=== PATIENT | female | born 1960 | race Caucasian/White ===

== ENCOUNTER 2017-07-05 12:53 | Inpatient (IN) | payer BC ==
[~2017-07-05] VITALS: Ht 162.6 cm; Wt 106.9 kg
[2017-07-05 12:57] VITALS: BP 246/114; PULSE 120; RESP 16; TEMP 98.1; O2SAT 98
[2017-07-05 14:39] LABS: AUTOMATED NEUTROPHIL # 4.4 TH/MM3 (1.8-7.7); BASOPHIL % 0.7 % (0.0-2.0); EOSINOPHIL # 0.1 TH/MM3 (0-0.4); EOSINOPHIL % 1.6 % (0.0-4.0); HEMATOCRIT 39.2 % (35.0-46.0); HEMOGLOBIN 13.1 GM/DL (11.6-15.3); LYMPH % 20.7 % (9.0-44.0); LYMPHOCYTE # 1.3 TH/MM3 (1.0-4.8); MEAN CELL VOLUME 80.6 FL (80.0-100.0); MEAN CORPUSCULAR HEMOGLOBIN 26.9 PG (27.0-34.0); MEAN CORPUSCULAR HGB CONC 33.4 % (32.0-36.0); MEAN PLATELET VOLUME 7.9 FL (7.0-11.0); MONO % 6.4 % (0.0-8.0); MONOCYTE # 0.4 TH/MM3 (0-0.9); NEUT % 70.6 % (16.0-70.0); PLATELET COUNT 277 TH/MM3 (150-450); RED BLOOD COUNT 4.87 MIL/MM3 (4.00-5.30); WHITE BLOOD COUNT 6.2 TH/MM3 (4.0-11.0)
[2017-07-05 15:08] LABS: BICARBONATE 27.3 MEQ/L (21.0-32.0); BLOOD UREA NITROGEN 13 MG/DL (7-18); CALCIUM 9.2 MG/DL (8.5-10.1); CHLORIDE 104 MEQ/L (98-107); CREATININE 0.72 MG/DL (0.50-1.00); GLOMERULAR FILTRATION RATE 83 ML/MIN (>89); GLUCOSE,RANDOM 102 MG/DL (74-106); MAGNESIUM 2.1 MG/DL (1.5-2.5); SODIUM (NA) 139 MEQ/L (136-145)
[2017-07-05 15:12] LABS: TROPONIN I LESS THAN 0.02 NG/ML (0.02-0.05)
[2017-07-05] MEDS ORDERED: PIPERACIL-TAZO 3.375 GM PREMIX 50 ML IV ONE (15:45)
[2017-07-05] MEDS ORDERED: FIBE625T10 PO (16:02)
[2017-07-05] MEDS ORDERED: MECL-62 PO (16:02)
[2017-07-05] MEDS ORDERED: LISI-515 PO (16:02)
--- NOTE | 2017-07-05 16:23 | PD ---
HPI Chief Complaint: Hypertension Time Seen by Provider: 15:18 Travel History International Travel<30 days: Yes Contact w/Intl Traveler<30days: Yes Name of Country Traveled to: [place] Traveled to known affect area: No History of Present Illness HPI 57-year-old female that presents to the ED for evaluation of hypertension and left breast mass. Per patient she's had a mass in her left breast for about 15 years and she's been monitored by a different doctor but apparently per patient her insurance was recently changed about 6 months ago and she has not been able to follow up with anybody since. Per patient she was having the mass and she was told that he probably was calcified mass but never did anything for it. Per patient he was okay for the most part except she had some pain that she took Tylenol for it with some relief. Per patient after her insurance changed she noted that the mass is started discharge coming from it. Per patient is more sore. She denies any family history of breast cancer but denies any testing done. Per patient she was sent to do some testing before her insurance was changed but apparently she had issues as the testing that they wanted to do was not the necessary one and they kept going in and out of trying to do the testing. She never actually got any testing done per patient. Per patient she comes here today because she is concerned about the mass and the blood pressure which she checked today was elevated. She states that she takes lisinopril. Currently she has no PCP. She has no allergies to medication. She stands and chills on occasion. She states that she feels swollen. Has no chest pain or shortness of breath other than pain to the left breast. PFSH Past Medical History Cardiovascular Problems: Yes (HTN) Diabetes: No Hypertension: Yes Medical other: Yes (VERTIGO) Tetanus Vaccination: > 5 Years Influenza Vaccination: No ?: Not Tubal Ligation: Yes Past Surgical History Hysterectomy: Yes Social History Alcohol Use: Yes (OOCAS) Tobacco Use: No Substance Use: No Allergies-Medications (Allergen,Severity, Reaction): Coded Allergies: No Known Allergies (Unverified , 07/05/17) Reported Meds & Prescriptions Reported Meds & Active Scripts Active Reported Fiber (Calcium Polycarbophil) 625 Mg Tab 625 Mg PO PRN Meclizine (Meclizine HCl) 25 Mg Tab 25 Mg PO DIRECTED PRN Lisinopril 20 Mg Tab 20 Mg PO DAILY Review of Systems Except as stated in HPI: all other systems reviewed are Neg Physical Exam Narrative GENERAL: SKIN: Warm and dry. Breast exam: The with female nurse present. Patient has a significant mass to the left breast on the superior aspect of it. Patient does have opening of the skin with foul-smelling discharge that is about 3-4 cm in diameter. Patient has erythema and warmness to touch in the area. Patient does have lymphadenopathy noted on the left side. The mass itself appears to be almost 10 cm in diameter. Patient does have changes to the skin with erythema. HEAD: Atraumatic. Normocephalic. EYES: Pupils equal and round. No scleral icterus. No injection or drainage. ENT: No nasal bleeding or discharge. Mucous membranes pink and moist. Tongue is midline. No uvula deviation. NECK: Trachea midline. No JVD. CARDIOVASCULAR: Regular rate and rhythm. No murmurs, S3, S4. RESPIRATORY: No accessory muscle use. Clear to auscultation. Breath sounds equal bilaterally. GASTROINTESTINAL: Abdomen soft, non-tender, nondistended. Hepatic and splenic margins not palpable. MUSCULOSKELETAL: Extremities without clubbing, cyanosis, or edema. No obvious deformities. Full range of motion of the upper and lower extremities bilaterally. 2+ pulses bilaterally. NEUROLOGICAL: Awake and alert. No obvious cranial nerve deficits. Motor grossly within normal limits. Five out of 5 muscle strength in the arms and legs. Normal speech. PSYCHIATRIC: Appropriate mood and affect; insight and judgment normal. Data Data Last Documented VS Vital Signs Date Time Temp Pulse Resp B/P (MAP) Pulse Ox O2 Delivery O2 Flow Rate FiO2 07/05/17 15:37 110 18 99 Room Air 07/05/17 12:57 98.1 246/114 (158) Orders Orders Electrocardiogram (07/05/17 13:31) Basic Metabolic Panel (Bmp) (07/05/17 13:31) Ckmb (Isoenzyme) Profile (07/05/17 13:31) Complete Blood Count With Diff (07/05/17 13:31) Magnesium (Mg) (07/05/17 13:31) Troponin I (07/05/17 13:31) Blood Culture (07/05/17 15:43) Wound Culture And Gram Stain (07/05/17 15:43) Iv Access Insert/Monitor (07/05/17 15:43) Ecg Monitoring (07/05/17 15:43) Oximetry (07/05/17 15:43) Us Breast Unilateral (07/05/17 ) Ct Thorax/ Chest W Iv Contrast (07/05/17 ) Piperacil-Tazo 3.375 Gm Premix (Zosyn 3. (07/05/17 15:45) C-Reactive Protein (Crp) (07/05/17 15:55) Lactic Acid Sepsis Protocol (07/05/17 15:56) Iohexol 350 Inj (Omnipaque 350 Inj) (07/05/17 16:45) Hydralazine Inj (Apresoline Inj) (07/05/17 17:15) Admit Order (Ed Use Only) (07/05/17 17:33) Labs Laboratory Tests Test 07/05/17 14:14 07/05/17 14:15 07/05/17 15:55 Blood Urea Nitrogen 13 MG/DL Creatinine 0.72 MG/DL Random Glucose 102 MG/DL Calcium Level 9.2 MG/DL Magnesium Level 2.1 MG/DL Sodium Level 139 MEQ/L Potassium Level 3.7 MEQ/L Chloride Level 104 MEQ/L Carbon Dioxide Level 27.3 MEQ/L Anion Gap 8 MEQ/L Estimat Glomerular Filtration Rate 83 ML/MIN Total Creatine Kinase 71 U/L Troponin I LESS THAN 0.02 NG/ML White Blood Count 6.2 TH/MM3 Red Blood Count 4.87 MIL/MM3 Hemoglobin 13.1 GM/DL Hematocrit 39.2 % Mean Corpuscular Volume 80.6 FL Mean Corpuscular Hemoglobin 26.9 PG Mean Corpuscular Hemoglobin Concent 33.4 % Red Cell Distribution Width 14.0 % Platelet Count 277 TH/MM3 Mean Platelet Volume 7.9 FL Neutrophils (%) (Auto) 70.6 % Lymphocytes (%) (Auto) 20.7 % Monocytes (%) (Auto) 6.4 % Eosinophils (%) (Auto) 1.6 % Basophils (%) (Auto) 0.7 % Neutrophils # (Auto) 4.4 TH/MM3 Lymphocytes # (Auto) 1.3 TH/MM3 Monocytes # (Auto) 0.4 TH/MM3 Eosinophils # (Auto) 0.1 TH/MM3 Basophils # (Auto) 0.0 TH/MM3 CBC Comment DIFF FINAL Differential Comment Lactic Acid Level 1.0 mmol/L C-Reactive Protein LESS THAN 0.29 MG/DL MDM Medical Decision Making Medical Screen Exam Complete: Yes Emergency Medical Condition: Yes Medical Record Reviewed: Yes Interpretation(s) Last Impressions Chest CT 07/05/17 0000 Signed Impressions: Service Date/Time: Wednesday, July 05, 2017 16:39 - CONCLUSION: 1. Very large left-sided breast mass with associated skin thickening and left axillary adenopathy. Patient has been previously evaluated for this mass, most recently in September of 2015, with ultrasound report of BI-RADS 5 and reported surgical consultation. 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 2. Focal hypodense region along the lateral posterior aspect of the mass measures 2.9 x 3.5 cm. This likely reflects tumoral necrosis. Small abscess cannot be excluded given history of purulent discharge from the region of the mass. 3. No evidence for additional foci of metastatic disease. 4. Hepatic steatosis. Ayan Abel MD Breast Ultrasound 07/05/17 0000 Signed Impressions: Service Date/Time: Wednesday, July 05, 2017 15:59 - CONCLUSION: 1. Enlarging very large hypoechoic irregular lobulated mass occupying nearly the entire lateral aspect of the left breast. This mass has reportedly been present for many years and has been previously worked up. BI-RADS category 5 based on prior ultrasound examination from [facility] dated 10/06/2015. Clinical correlation is recommended. 2. No sonographic evidence for focal drainable fluid collection within the mass. Ayan Abel MD CBC & BMP Diagram 07/05/17 14:14 Calcium Level 9.2, Magnesium Level 2.1 07/05/17 14:15 Differential Diagnosis Breasts infection versus breast abscess versus breast cancer versus cellulitis Narrative Course 57-year-old female that presents to the ED for evaluation of breast infection. Labs and imaging were ordered. Labs and imaging that shows significant mass to the left breast. Appears to be possibly metastatic. Possible abscesses noted. My attending was made aware of findings and agrees with need for admission. Patient agrees with plan. Patient was started on IV antibiotics. Case was discussed with Dr. Moura who agrees to admission. Diagnosis Primary Impression: Cellulitis of left breast Additional Impression: Breast mass, left Admitting Information Admitting Physician Requests: Freedom Davenport Jul 05, 2017 16:23
[2017-07-05] MEDS ORDERED: IOHEXOL 350 MG/ML 10 ML VIAL (for RAD DIAG) IVCONTRAST ONE (16:45)
--- NOTE | 2017-07-05 17:03 | RADRPT ---
EXAM DATE/TIME: 07/05/2017 15:59 [facility] COMPARISON: CT THORAX W CONTRAST, July 05, 2017, 16:39. INDICATIONS : Palpable mass. MEDICAL HISTORY : Hypertension. Vertigo. SURGICAL HISTORY : Tubal ligation. Hysterectomy. ENCOUNTER: Initial ACUITY: > 1 year PAIN SCORE: 6/10 LOCATION: Left breast. FINDINGS: There is a very large hypoechoic irregular mass with minimal vascularity involving nearly the entire lateral side of the left breast. This mass measures approximately 12.0 x 13.2 x 6.1 cm. This was prev iously reported to measure 9.1 x 3.6 x 7.2 cm. There are no focal drainable fluid collections in the visualized portions of the breast. CONCLUSION: 1. Enlarging very large hypoechoic irregular lobulated mass occupying nearly the entire lateral aspec t of the left breast. This mass has reportedly been present for many years and has been previously wo rked up. BI-RADS category 5 based on prior ultrasound examination from [facility] dated 2015. Clinical correlation is recommended. 2. No sonographic evidence for focal drainable fluid collection within the mass. Ayan Abel MD on July 05, 2017 at 16:54 Board Certified Radiologist. This report was verified electronically.
--- NOTE | 2017-07-05 17:12 | RADRPT ---
EXAM DATE/TIME: 07/05/2017 16:39 [facility] COMPARISON: No previous studies available for comparison. INDICATIONS : Patient with history of left breast mass. IV CONTRAST: 100 cc Omnipaque 350 (iohexol) IV RADIATION DOSE: 19.63 CTDIvol (mGy) MEDICAL HISTORY : Cardiovascular disease. Hypertension. breast mass SURGICAL HISTORY : None. ENCOUNTER: Initial ACUITY: >1 yr PAIN SCALE: 9/10 LOCATION: Left chest TECHNIQUE: Volumetric scanning of the chest was performed. Using automated exposure control and adjustment of t he mA and/or kV according to patient size, radiation dose was kept as low as reasonably achievable to obtain optimal diagnostic quality images. DICOM format image data is available electronically for review and comparison. Follow-up recommendations for detected pulmonary nodules are based at a minimum on nodule size and [facility] risk factors according to Fleischner Society Guidelines. FINDINGS: LUNGS: There is no consolidation or pneumothorax. No concerning pulmonary nodule is visualized. PLEURA: There is no pleural thickening or pleural effusion. MEDIASTINUM: The heart and great vessels demonstrate no acute abnormality. There is no mediastinal or hilar lymph adenopathy. AXILLAE: There is a very large left-sided breast mass occupying nearly the entire left breast measuring approx imately 9.7 x 6.6 cm. There is associated skin thickening. A focal 2.9 x 3.5 cm portion of this mass is more hypodense along the lateral posterior aspect. There are multiple enlarged left axillary nodes with the largest measuring 3.8 x 3.5 cm. There also multiple prominent vessels noted extending from the mass. SKELETAL: Within normal limits for patient age. MISCELLANEOUS: The visualized upper abdominal organs demonstrate diffusely decreased hepatic density consistent with hepatic steatosis. CONCLUSION: 1. Very large left-sided breast mass with associated skin thickening and left axillary adenopathy. [facility] has been previously evaluated for this mass, most recently in September of 2015, with ultrasound re port of BI-RADS 5 and reported surgical consultation. Findings are again consistent with malignancy a nd associated lissa metastases. 2. Focal hypodense region along the lateral posterior aspect of the mass measures 2.9 x 3.5 cm. This likely reflects tumoral necrosis. Small abscess cannot be excluded given history of purulent discharg e from the region of the mass. 3. No evidence for additional foci of metastatic disease. 4. Hepatic steatosis. Ayan Abel MD on July 05, 2017 at 17:01 Board Certified Radiologist. This report was verified electronically.
[2017-07-05] MEDS ORDERED: hydrALAZINE HCL 20 MG/ML VIAL IV PUSH ONE (17:15)
--- NOTE | 2017-07-05 17:56 | HHI.HP ---
[facility] Service [place] [facility] Primary Care Physician No Primary Care Physician Admission Diagnosis left breast mass with cellulitis, abscess?, hypertension Diagnoses: Travel History International Travel<30 Days: Yes Contact w/Intl Traveler <30 Da: Yes Name of Country Traveled to: [place] Traveled to Known Affected Are: No Sepsis Criteria SIRS Criteria (2 or more): Heart rate over 90, WBC > 36488, < 4000 or > 10% bands Sepsis Criteria (SIRS+source): Infect source susp/known History of Present Illness Mrs. Dasilva is a 57-year-old female. She is at the hospital today for evaluation of the left breast mass. Left breast mass has been present for 15 years. She says as an outpatient she has had imaging performed which has been suggestive of tumor in the past. She reports that obtaining the correct image orders (says numerous times the roofing technician needed a different order than screening mammogram in order to perform testing) and lack of insurance have been barriers to her fully pursuing this breast mass earlier. She feels that the slowly progressive nature of this breast mass makes it more likely benign. However, recently the breast mass has ulcerated and has been producing milky/ purulent discharge. The mass has become more vascular and large. She also has developed a palpable axillary mass at the time of the recent progression mentioned. Imaging is suspicious for malignancy with associated lymphadenopathy. Focal area of Necrosis versus abscess on imaging, within the tumor. No other complaints. She denies any fever. No chills. No night sweats. Tachycardia, increased neutrophil ratio and suspected source of infection qualified as patient for sepsis. Review of Systems Constitutional: DENIES: Fatigue, Fever, Chills, Night Sweats Eyes: DENIES: Blurred vision, Diplopia, Eye inflammation, Eye pain Ears, nose, mouth, throat: DENIES: Tinnitus, Hearing loss, Vertigo, Nasal discharge Respiratory: DENIES: Apneas, Cough, Wheezing, Shortness of breath Cardiovascular: DENIES: Chest pain, Palpitations, Syncope, Dyspnea on Exertion Gastrointestinal: DENIES: Abdominal pain, Black stools, Bloody stools, Constipation Musculoskeletal: DENIES: Joint pain, Muscle aches, Stiffness, Joint Swelling Integumentary: COMPLAINS OF: Breast masses, DENIES: Abnormal pigmentation, Pruritus, Rash, Nail changes Hematologic/lymphatic: DENIES: Bruising, Lymphadenopathy Immunologic/allergic: DENIES: Eczema, Urticaria Neurologic: DENIES: Abnormal gait, Headache, Paresthesias Psychiatric: DENIES: Anxiety, Confusion, Hallucinations Past Family Social History Past Medical History Coronary artery disease Hypertension Vertigo Past Surgical History History of tubal ligation Hysterectomy Reported Medications Reported Meds & Active Scripts Active Reported Fiber (Calcium Polycarbophil) 625 Mg Tab 625 Mg PO PRN Meclizine (Meclizine HCl) 25 Mg Tab 25 Mg PO DIRECTED PRN Lisinopril 20 Mg Tab 20 Mg PO DAILY Allergies: Coded Allergies: No Known Allergies (Unverified , 07/05/17) Family History No related medical history mother and father Social History Occasional alcohol use No nicotine abuse Known history of illicit drug abuse Physical Exam Vital Signs Vital Signs Date Time Temp Pulse Resp B/P (MAP) Pulse Ox O2 Delivery O2 Flow Rate FiO2 07/05/17 15:37 110 18 99 Room Air 07/05/17 12:57 98.1 120 16 246/114 (158) 98 Physical Exam GENERAL: NAD, A&Ox3 HEAD: Normocephalic. NECK: Supple, trachea midline. No lymphadenopathy. EYES: No scleral icterus. No injection or drainage. CARDIOVASCULAR: Regular rate and rhythm without murmurs, gallops, or rubs. RESPIRATORY: Breath sounds equal bilaterally. No accessory muscle use. GASTROINTESTINAL: Abdomen soft, non-tender, nondistended. MUSCULOSKELETAL: No cyanosis, or edema. SKIN: Warm and dry. BREAST: Large irregular mass of left breast. Mass measures approximately 12 x 12 cm. Center of the anterior mass has ulcer measures approximately 4 x 6 cm with evidence of previous drainage but no active drainage seen during exam. Dark purple and erythematous use are present anteriorly with visible hyper- vascularity. Mild tenderness is present but not acute tenderness. The left axilla has a palpable 4 x 2 cm mass or cluster of lymph nodes. Small subcentimeter Palpable lymph nodes are present throughout the rest of the left axilla. NEURO: No focal neurological deficitis. Laboratory Laboratory Tests Test 07/05/17 14:14 07/05/17 14:15 07/05/17 15:55 Blood Urea Nitrogen 13 Creatinine 0.72 Random Glucose 102 Calcium Level 9.2 Magnesium Level 2.1 Sodium Level 139 Potassium Level 3.7 Chloride Level 104 Carbon Dioxide Level 27.3 Anion Gap 8 Estimat Glomerular Filtration Rate 83 Total Creatine Kinase 71 Troponin I LESS THAN 0.02 White Blood Count 6.2 Red Blood Count 4.87 Hemoglobin 13.1 Hematocrit 39.2 Mean Corpuscular Volume 80.6 Mean Corpuscular Hemoglobin 26.9 Mean Corpuscular Hemoglobin Concent 33.4 Red Cell Distribution Width 14.0 Platelet Count 277 Mean Platelet Volume 7.9 Neutrophils (%) (Auto) 70.6 Lymphocytes (%) (Auto) 20.7 Monocytes (%) (Auto) 6.4 Eosinophils (%) (Auto) 1.6 Basophils (%) (Auto) 0.7 Neutrophils # (Auto) 4.4 Lymphocytes # (Auto) 1.3 Monocytes # (Auto) 0.4 Eosinophils # (Auto) 0.1 Basophils # (Auto) 0.0 CBC Comment DIFF FINAL Differential Comment Lactic Acid Level 1.0 C-Reactive Protein LESS THAN 0.29 Date/Time Source Procedure Growth Status 07/05/17 15:55 Blood Peripheral Aerobic Blood Culture Pending Received 07/05/17 15:55 Blood Peripheral Anaerobic Blood Culture Pending Received 07/05/17 15:55 Wound Breast Gram Stain - Final Resulted 07/05/17 15:55 Wound Breast Wound Culture Pending Resulted Result Diagram: 07/05/17 1415 07/05/17 1414 Caprini VTE Risk Assessment Caprini VTE Risk Assessment: No/Low Risk (score <= 1) Caprini Risk Assessment Model Point Value = 1 Point Value = 2 Point Value = 3 Point Value = 5 Age 41-60 Minor surgery BMI > 25 kg/m2 Swollen legs Varicose veins or History of unexplained or recurrent spontaneous Oral contraceptives or hormone replacement Sepsis (< 1 month) Serious lung disease, including pneumonia (< 1 month) Abnormal pulmonary function Acute myocardial infarction Congestive heart failure (< 1 month) History of inflammatory bowel disease Medical patient at bed rest Age 61-74 Arthroscopic surgery Major open surgery (> 45 min) Laparoscopic surgery (> 45 min) Malignancy Confined to bed (> 72 hours) Immobilizing plaster cast Central venous access Age >= 75 History of VTE Family history of VTE Factor V Leiden Prothrombin [id number] Lupus anticoagulant Anticardiolipin antibodies Elevated serum homocysteine Heparin-induced thrombocytopenia Other congenital or acquired thrombophilia Stroke (< 1 month) Elective arthroplasty Hip, pelvis, or leg fracture Acute spinal cord injury (< 1 month) Prophylaxis Regimen Total Risk Factor Score Risk Level Prophylaxis Regimen 0-1 Low Early ambulation 2 Moderate Order ONE of the following: *Sequential Compression Device (SCD) *Heparin 5000 units SQ BID 3-4 Higher Order ONE of the following medications: *Heparin 5000 units SQ TID *Enoxaparin/Lovenox 40 mg SQ daily (WT < 150 kg, CrCl > 30 mL/min) *Enoxaparin/Lovenox 30 mg SQ daily (WT < 150 kg, CrCl > 10-29 mL/min) *Enoxaparin/Lovenox 30 mg SQ BID (WT < 150 kg, CrCl > 30 mL/min) AND/OR *Sequential Compression Device (SCD) 5 or more Highest Order ONE of the following medications: *Heparin 5000 units SQ TID (Preferred with Epidurals) *Enoxaparin/Lovenox 40 mg SQ daily (WT < 150 kg, CrCl > 30 mL/min) *Enoxaparin/Lovenox 30 mg SQ daily (WT < 150 kg, CrCl > 10-29 mL/min) *Enoxaparin/Lovenox 30 mg SQ BID (WT < 150 kg, CrCl > 30 mL/min) AND *Sequential Compression Device (SCD) Assessment and Plan Problem List: (1) Breast mass, left ICD Code: N63.20 - Unspecified lump in the left breast, unspecified quadrant Status: Acute (2) Cellulitis of left breast ICD Code: N61.0 - Mastitis without abscess Status: Acute Assessment and Plan 57-year-old female admitted secondary to mastitis with sepsis Large left breast mass Malignancy suspected Surgery consulted Nothing by mouth after midnight Possible Sepsis Left breast Mastitis Evolution of mass versus onset of infection may explain her description of an acute change Zosyn Probiotics Follow wound cultures IV hydration Monitor vital signs Hypertensive urgency on Hypertension Large component of anxiety may be present As needed clonidine As needed enalapril Xanax as needed Coronary artery disease No chest pain Follow clinically Vertigo Begin as needed meclizine DVT prophylaxis Patient declines anticoagulants Patient is ambulatory SCDs while in bed Physician Certification 2 Midnight Certification Type: Admission for Inpatient Services Order for Inpatient Services The services are ordered in accordance with Medicare regulations or non- Medicare payer requirements, as applicable. In the case of services not specified as inpatient-only, they are appropriately provided as inpatient services in accordance with the 2-midnight benchmark. Estimated LOS (days): 3 days is the estimated time the patient will need to remain in the hospital, assuming treatment plan goals are met and no additional complications. Post-Hospital Plan: Home Shyam Wu MD Jul 05, 2017 17:56
[2017-07-05] MEDS ORDERED: NALOXONE HCL 0.4 MG/ML AMP IV PUSH PRN (18:00)
[2017-07-05] MEDS ORDERED: ONDANSETRON HCL 4 MG/2 ML VIAL IVP PRN (18:00)
[2017-07-05] MEDS ORDERED: ENOXAPARIN SODIUM 40 MG/0.4 ML SYRINGE SQ SCH (18:00)
[2017-07-05] MEDS ORDERED: MAGNESIUM HYDROXIDE SUSP 30 ML CUP PO PRN (18:00)
[2017-07-05] MEDS ORDERED: oxyCODONE/ACETAMINOPHEN 5 MG/325 MG TAB PO PRN (18:00)
[2017-07-05] MEDS ORDERED: oxyCODONE/ACETAMINOPHEN 10 MG/325 MG TAB PO PRN (18:00)
[2017-07-05] MEDS ORDERED: SODIUM CHLORIDE 0.9% FLUSH 10 ML FLUSH IV FLUSH PRN (18:00)
[2017-07-05 18:15] VITALS: BP 192/97; PULSE 110; RESP 18; O2SAT 99
[2017-07-05] MEDS ORDERED: MORPHINE SULFATE 4 MG/ML INJ IV PUSH PRN (18:15)
[2017-07-05] MEDS: SODIUM CHLOR 0.9% 1000 ML INJ 1,000 ML IV SCH (18:26)
[2017-07-05] MEDS ORDERED: ENALAPRILAT 1.25 MG/ML VIAL IV PUSH PRN (18:30)
[2017-07-05] MEDS ORDERED: cloNIDine HCL 0.1 MG TAB PO PRN (18:30)
[2017-07-05] MEDS ORDERED: MECLIZINE HCL 25 MG TAB PO PRN (19:30)
[2017-07-05] MEDS ORDERED: ONDANSETRON HCL 4 MG/2 ML VIAL IV PUSH ONE (20:30)
[2017-07-05] MEDS: DOCUSATE SODIUM 50 MG/SENNA 8.6 MG TAB PO SCH (21:00)
[2017-07-05] MEDS: SODIUM CHLORIDE 0.9% FLUSH 10 ML FLUSH IV FLUSH SCH (21:00)
[2017-07-05 21:24] VITALS: BP 167/80
[2017-07-05] MEDS ORDERED: PIPERACIL-TAZO 3.375 GM PREMIX 50 ML IV SCH (22:00)
[2017-07-05 22:40] VITALS: BP 168/78; PULSE 102; RESP 21; TEMP 98.6; O2SAT 95
[2017-07-05] MEDS: PIPERACILLIN/TAZ 3.375 GM VIAL 3.375 GM in SODIUM CHLORIDE 0.9% INJ 100 ML IV SCH (23:21)
[2017-07-06] VITALS: BP 162/70; PULSE 108; PULSE 88; RESP 22; TEMP 98.6; O2SAT 98
[2017-07-06 04:00] VITALS: BP 132/72; PULSE 77; PULSE 82; RESP 20; TEMP 97.7; O2SAT 99
[2017-07-06] MEDS: SODIUM CHLOR 0.9% 1000 ML INJ 1,000 ML IV SCH (04:37)
[2017-07-06 07:36] LABS: AUTOMATED NEUTROPHIL # 4.4 TH/MM3 (1.8-7.7); BASOPHIL # 0.1 TH/MM3 (0-0.2); BASOPHIL % 0.9 % (0.0-2.0); EOSINOPHIL % 0.4 % (0.0-4.0); HEMATOCRIT 36.8 % (35.0-46.0); HEMOGLOBIN 12.7 GM/DL (11.6-15.3); LYMPH % 18.6 % (9.0-44.0); LYMPHOCYTE # 1.1 TH/MM3 (1.0-4.8); MEAN CELL VOLUME 79.8 FL (80.0-100.0); MEAN CORPUSCULAR HEMOGLOBIN 27.6 PG (27.0-34.0); MEAN CORPUSCULAR HGB CONC 34.6 % (32.0-36.0); MEAN PLATELET VOLUME 8.4 FL (7.0-11.0); MONO % 6.9 % (0.0-8.0); MONOCYTE # 0.4 TH/MM3 (0-0.9); NEUT % 73.2 % (16.0-70.0); PLATELET COUNT 282 TH/MM3 (150-450); RED BLOOD COUNT 4.61 MIL/MM3 (4.00-5.30); RED CELL DISTRIBUTION WIDTH 13.8 % (11.6-17.2)
[2017-07-06 07:58] LABS: ALBUMIN 3.9 GM/DL (3.4-5.0); ALT (GPT) 54 U/L (10-53); AST (GOT) 29 U/L (15-37); BLOOD UREA NITROGEN 9 MG/DL (7-18); CALCIUM 9.1 MG/DL (8.5-10.1); CHLORIDE 107 MEQ/L (98-107); CREATININE 0.65 MG/DL (0.50-1.00); GLOMERULAR FILTRATION RATE 93 ML/MIN (>89); GLUCOSE,RANDOM 121 MG/DL (74-106); SODIUM (NA) 140 MEQ/L (136-145)
[2017-07-06 08:00] VITALS: BP 200/98; PULSE 63; PULSE 83; PULSE 92; RESP 20; TEMP 97.6; O2SAT 92
[2017-07-06 08:02] LABS: ALKALINE PHOSPHATASE 111 U/L (45-117); TOTAL BILIRUBIN ADULT 0.4 MG/DL (0.2-1.0); TOTAL PROTEIN 7.8 GM/DL (6.4-8.2)
[2017-07-06] MEDS: DOCUSATE SODIUM 50 MG/SENNA 8.6 MG TAB PO SCH (09:00)
[2017-07-06] MEDS: SODIUM CHLORIDE 0.9% FLUSH 10 ML FLUSH IV FLUSH SCH (09:00)
[2017-07-06] MEDS: LACTOBACILLUS ACIDOPHILUS TAB PO SCH ×2 (09:29→13:27)
[2017-07-06] MEDS: PIPERACILLIN/TAZ 3.375 GM VIAL 3.375 GM in SODIUM CHLORIDE 0.9% INJ 100 ML IV SCH (09:29)
[2017-07-06 12:00] VITALS: BP 193/99; PULSE 85; PULSE 91; RESP 20; TEMP 97.4; O2SAT 95
[2017-07-06] MEDS ORDERED: ACETAMINOPHEN 325 MG TAB PO PRN (13:00)
--- NOTE | 2017-07-06 13:14 | PD.CONS ---
HPI Service General Surgery Consult Requested By Dr. Calhoun Reason for Consult Breast mass Primary Care Physician No Primary Care Physician History of Present Illness 57 yo F presents with left breast mass reportedly draining. Mass present for about 15 yrs. She says it is a "calcified mass" and is not a malignancy. She had begun undergoing workup with a previous PCP but then her insurance changed. She reports she obtained better insurance and presented here as she felt she would get quicker treatment than having to go through all the referrals and evaluations as an outpatient. Her primary complaint when I entered was severe heartburn and a headache. She is belligerent and history is somewhat difficult to obtain. Her is present at the bedside as well. She has undergone left breast u/s and chest CT which both show a very large left sided breast mass with associated lymphadenopathy concerning for malignancy. As far as I can tell she has not had a tissue diagnosis. Review of Systems Constitutional: DENIES: Fever, Chills Eyes: DENIES: Eye inflammation, Eye pain Respiratory: DENIES: Cough, Shortness of breath Cardiovascular: DENIES: Chest pain, Palpitations Gastrointestinal: COMPLAINS OF: Nausea, DENIES: Abdominal pain Integumentary: DENIES: Pruritus, Rash Neurologic: COMPLAINS OF: Headache, DENIES: Paresthesias, Seizures Past Family Social History Past Medical History Coronary artery disease Hypertension Vertigo Past Surgical History Tubal Hysterectomy Reported Medications Reported Meds & Active Scripts Active Reported Fiber (Calcium Polycarbophil) 625 Mg Tab 625 Mg PO PRN Meclizine (Meclizine HCl) 25 Mg Tab 25 Mg PO DIRECTED PRN Lisinopril 20 Mg Tab 20 Mg PO DAILY Allergies: Coded Allergies: No Known Allergies (Unverified , 07/05/17) Active Ordered Medications Current Medications Medications (Trade) Dose Ordered Sig/Eris Route Start Time Stop Time Status Last Admin Sodium Chloride 1,000 ml @ 100 mls/hr Q10H IV 07/05/17 18:00 07/06/17 04:37 (NS Flush) 2 ml UNSCH PRN IV FLUSH 07/05/17 18:00 (NS Flush) 2 ml BID IV FLUSH 07/05/17 21:00 (Zofran Inj) 4 mg Q6H PRN IVP 07/05/17 18:00 (Percocet 5-325 Mg) 1 tab Q4H PRN PO 07/05/17 18:00 (Percocet 10-325 Mg) 1 tab Q4H PRN PO 07/05/17 18:00 (Morphine Inj) 4 mg Q4H PRN IV PUSH 07/05/17 18:15 (Narcan Inj) 0.4 mg UNSCH PRN IV PUSH 07/05/17 18:00 (Hui-Colace) 1 tab BID PO 07/05/17 21:00 (Milk Of Magnesia Liq) 30 ml Q12H PRN PO 07/05/17 18:00 (Catapres) 0.1 mg Q6H PRN PO 07/05/17 18:30 07/05/17 23:28 (Vasotec Inj) 1.25 mg Q6H PRN IV PUSH 07/05/17 18:30 07/06/17 09:32 (Lactinex) 1 tab TID PO 07/06/17 09:00 07/06/17 09:29 (Antivert) 25 mg Q8H PRN PO 07/05/17 19:30 Piperacillin Sod/ Tazobactam Sod 3.375 gm/Sodium Chloride 100 ml @ 200 mls/hr Q8H IV 07/06/17 00:00 07/06/17 09:29 (Tylenol) 650 mg Q4H PRN PO 07/06/17 13:00 UNV Family History Noncontributory Social History Occasional alcohol use No nicotine abuse Known history of illicit drug abuse Physical Exam Vital Signs Vital Signs Date Time Temp Pulse Resp B/P (MAP) Pulse Ox O2 Delivery O2 Flow Rate FiO2 07/06/17 08:00 83 07/06/17 04:00 97.7 82 20 132/72 (92) 99 07/06/17 04:00 77 07/06/17 00:00 88 07/06/17 00:00 98.6 108 22 162/70 (100) 98 07/05/17 22:40 98.6 102 21 168/78 (108) 95 07/05/17 22:30 Room Air 07/05/17 21:24 167/80 (109) 07/05/17 18:15 110 18 192/97 (128) 99 Room Air 07/05/17 15:37 110 18 99 Room Air Physical Exam Exam performed in the presence of a female nurse. GENERAL: Awake and alert. Obese. HEAD: Normocephalic. Atraumatic. EYES: Pupils equal round and reactive to light bilaterally. No scleral icterus. ENT: Moist oral mucosa. NECK: Trachea midline. CHEST: No respiratory distress. Left breast with very large fungating mass and increased vascularity along the skin surface, approx 3x6 area necrotic skin with and ulcer. Left axillary lymphadenopathy palpated. EXTREMITIES: No cyanosis or edema. SKIN: Warm, dry, nonjaundiced. Laboratory Laboratory Tests Test 07/05/17 14:14 07/05/17 14:15 07/05/17 15:55 07/06/17 06:45 Blood Urea Nitrogen 13 9 Creatinine 0.72 0.65 Random Glucose 102 121 Calcium Level 9.2 9.1 Magnesium Level 2.1 Sodium Level 139 140 Potassium Level 3.7 3.9 Chloride Level 104 107 Carbon Dioxide Level 27.3 24.0 Anion Gap 8 9 Estimat Glomerular Filtration Rate 83 93 Total Creatine Kinase 71 Troponin I LESS THAN 0.02 White Blood Count 6.2 6.0 Red Blood Count 4.87 4.61 Hemoglobin 13.1 12.7 Hematocrit 39.2 36.8 Mean Corpuscular Volume 80.6 79.8 Mean Corpuscular Hemoglobin 26.9 27.6 Mean Corpuscular Hemoglobin Concent 33.4 34.6 Red Cell Distribution Width 14.0 13.8 Platelet Count 277 282 Mean Platelet Volume 7.9 8.4 Neutrophils (%) (Auto) 70.6 73.2 Lymphocytes (%) (Auto) 20.7 18.6 Monocytes (%) (Auto) 6.4 6.9 Eosinophils (%) (Auto) 1.6 0.4 Basophils (%) (Auto) 0.7 0.9 Neutrophils # (Auto) 4.4 4.4 Lymphocytes # (Auto) 1.3 1.1 Monocytes # (Auto) 0.4 0.4 Eosinophils # (Auto) 0.1 0.0 Basophils # (Auto) 0.0 0.1 CBC Comment DIFF FINAL DIFF FINAL Differential Comment Lactic Acid Level 1.0 C-Reactive Protein LESS THAN 0.29 Total Protein 7.8 Albumin 3.9 Alkaline Phosphatase 111 Aspartate Amino Transf (AST/SGOT) 29 Alanine Aminotransferase (ALT/SGPT) 54 Total Bilirubin 0.4 Date/Time Source Procedure Growth Status 07/05/17 15:55 Blood Peripheral Aerobic Blood Culture - Preliminary NO GROWTH IN 1 DAY Resulted 07/05/17 15:55 Blood Peripheral Anaerobic Blood Culture - Preliminary NO GROWTH IN 1 DAY Resulted 07/05/17 15:55 Wound Breast Gram Stain - Final Resulted 07/05/17 15:55 Wound Breast Wound Culture Pending Resulted Result Diagram: 07/06/17 0645 07/06/17 0645 Imaging Last Impressions Chest CT 07/05/17 0000 Signed Impressions: Service Date/Time: Wednesday, July 05, 2017 16:39 - CONCLUSION: 1. Very large left-sided breast mass with associated skin thickening and left axillary adenopathy. Patient has been previously evaluated for this mass, most recently in September of 2015, with ultrasound report of BI-RADS 5 and reported surgical consultation. 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 2. Focal hypodense region along the lateral posterior aspect of the mass measures 2.9 x 3.5 cm. This likely reflects tumoral necrosis. Small abscess cannot be excluded given history of purulent discharge from the region of the mass. 3. No evidence for additional foci of metastatic disease. 4. Hepatic steatosis. Ayan Abel MD Breast Ultrasound 07/05/17 0000 Signed Impressions: Service Date/Time: Wednesday, July 05, 2017 15:59 - CONCLUSION: 1. Enlarging very large hypoechoic irregular lobulated mass occupying nearly the entire lateral aspect of the left breast. This mass has reportedly been present for many years and has been previously worked up. BI-RADS category 5 based on prior ultrasound examination from [facility] dated 10/06/2015. Clinical correlation is recommended. 2. No sonographic evidence for focal drainable fluid collection within the mass. Ayan Abel MD Assessment and Plan Assessment and Plan 57 yo F with large left sided breast mass and adenopathy concerning for malignancy. She needs further workup as an outpatient and can f/u with me anytime. I discussed things with her as much as possible although she was argumentative and upset. MarcelinoTony troncoso MD Jul 06, 2017 13:14
--- NOTE | 2017-07-06 15:25 | EKG ---
Date Performed: 07/05/2017 Time Performed: 14:18:38 PTAGE: 57 years EKG: SINUS TACHYCARDIA ABNORMAL RHYTHM ECG NO PREVIOUS TRACING DOCTOR: Jhonatan Li Interpretating Date/Time 07/06/2017 15:24:10
--- NOTE | 2017-07-06 15:53 | PD.AMA ---
Against Medical Advice Note Discharge Disposition: Against Medical Advice Pt Condition on Discharge: Stable Recommended Treatment Course The patient states that early pneumonia in the had a headache and has not been able to sleep well. The patient states that the headache has subsided after she was given pain medication. The patient however states that her blood pressure is very high and this is due to fibrosis in the hospital, does not like the food and has not eaten in 2 days. Patient currently has a systolic blood pressure of 190. Patient is awake alert oriented 3, nonacute distress sitting on the side of the bed. Lungs are clear to auscultation bilaterally. Patient has a large ulcerated left breast mass without any discharge at this point. I recommended to the patient that she should see an oncologist and also we should wait for the one culture which is growing gram-negative rods to keep us a final identification of the bacteria as well as sensitivities. I discussed with Dr Benson who said patient could follow as an outpatient for workup of the mass. I discussed with the patient that she should follow-up with oncology and general surgery. I strongly recommended the patient that having a blood pressure that high then lead to stroke and . The patient states that she does not care and she wants to go home. The patient's is at bedside. The patient also had some left breast mastitis will be discharged on by mouth Levaquin. AMA Statement Patient Carol Dasilva has decided to leave the hospital against medical advice. This patient has the capacity to refuse care and understands the risks of leaving, including permanent disability and/or , and has had an opportunity to ask questions about her condition. The patient has been informed that she may return for care at any time, and follow up has been arranged/ advised. John Robledo MD Jul 06, 2017 15:53
[2017-07-06 16:00] VITALS: PULSE 82
[2017-07-06] MEDS ORDERED: LEVA750T9 PO (16:01)
--- NOTE | 2017-07-06 16:07 | HHI.PR ---
Subjective Remarks Patient states had headache previously now resolved after tylenol. Denies cp/sob Denies dizziness afebrile Objective Vitals Vital Signs Date Time Temp Pulse Resp B/P (MAP) Pulse Ox O2 Delivery O2 Flow Rate FiO2 07/06/17 08:00 83 07/06/17 08:00 83 07/06/17 04:00 97.7 82 20 132/72 (92) 99 07/06/17 04:00 77 07/06/17 00:00 88 07/06/17 00:00 98.6 108 22 162/70 (100) 98 07/05/17 22:40 98.6 102 21 168/78 (108) 95 07/05/17 22:30 Room Air 07/05/17 21:24 167/80 (109) 07/05/17 18:15 110 18 192/97 (128) 99 Room Air I/O 07/05/17 07/05/17 07/05/17 07/06/17 07/06/17 07/06/17 07:00 15:00 23:00 07:00 15:00 23:00 Intake Total 50 ml 1490 ml Output Total 700 ml Balance 50 ml 790 ml Intake Oral 240 ml IV Total 50 ml 1250 ml Output Urine Total 700 ml Result Diagram: 07/06/17 0645 07/06/17 0645 Imaging Last Impressions Chest CT 07/05/17 0000 Signed Impressions: Service Date/Time: Wednesday, July 05, 2017 16:39 - CONCLUSION: 1. Very large left-sided breast mass with associated skin thickening and left axillary adenopathy. Patient has been previously evaluated for this mass, most recently in September of 2015, with ultrasound report of BI-RADS 5 and reported surgical consultation. 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 2. Focal hypodense region along the lateral posterior aspect of the mass measures 2.9 x 3.5 cm. This likely reflects tumoral necrosis. Small abscess cannot be excluded given history of purulent discharge from the region of the mass. 3. No evidence for additional foci of metastatic disease. 4. Hepatic steatosis. Ayan Abel MD Breast Ultrasound 07/05/17 0000 Signed Impressions: Service Date/Time: Wednesday, July 05, 2017 15:59 - CONCLUSION: 1. Enlarging very large hypoechoic irregular lobulated mass occupying nearly the entire lateral aspect of the left breast. This mass has reportedly been present for many years and has been previously worked up. BI-RADS category 5 based on prior ultrasound examination from [facility] dated 10/06/2015. Clinical correlation is recommended. 2. No sonographic evidence for focal drainable fluid collection within the mass. Ayan Abel MD Objective Remarks AAOx3 nad Large ulcerated mass of left breast Clear lungs BL S1S2 RRR, no MRG Abdomen is obese, soft, NT, ND Procedures none Medications and IVs Current Medications Medications (Trade) Dose Ordered Sig/Eris Route Start Time Stop Time Status Last Admin Sodium Chloride 1,000 ml @ 100 mls/hr Q10H IV 07/05/17 18:00 07/06/17 04:37 (NS Flush) 2 ml UNSCH PRN IV FLUSH 07/05/17 18:00 (NS Flush) 2 ml BID IV FLUSH 07/05/17 21:00 (Zofran Inj) 4 mg Q6H PRN IVP 07/05/17 18:00 (Percocet 5-325 Mg) 1 tab Q4H PRN PO 07/05/17 18:00 (Percocet 10-325 Mg) 1 tab Q4H PRN PO 07/05/17 18:00 (Morphine Inj) 4 mg Q4H PRN IV PUSH 07/05/17 18:15 (Narcan Inj) 0.4 mg UNSCH PRN IV PUSH 07/05/17 18:00 (Hui-Colace) 1 tab BID PO 07/05/17 21:00 (Milk Of Magnesia Liq) 30 ml Q12H PRN PO 07/05/17 18:00 (Catapres) 0.1 mg Q6H PRN PO 07/05/17 18:30 07/05/17 23:28 (Vasotec Inj) 1.25 mg Q6H PRN IV PUSH 07/05/17 18:30 07/06/17 09:32 (Lactinex) 1 tab TID PO 07/06/17 09:00 07/06/17 13:27 (Antivert) 25 mg Q8H PRN PO 07/05/17 19:30 Piperacillin Sod/ Tazobactam Sod 3.375 gm/Sodium Chloride 100 ml @ 200 mls/hr Q8H IV 07/06/17 00:00 07/06/17 09:29 (Tylenol) 650 mg Q4H PRN PO 07/06/17 13:00 07/06/17 13:27 A/P Problem List: (1) Breast mass, left ICD Code: N63.20 - Unspecified lump in the left breast, unspecified quadrant Status: Acute Plan: Related by general surgery. Discussed the case with Dr. Benson who recommends discharge for outpatient follow-up for workup of left breast. (2) Cellulitis of left breast ICD Code: N61.0 - Mastitis without abscess Status: Acute Plan: admitted and started on IV Zosyn. Blood cultures obtained and negative in 1 day. Wound cultures are growing gram-negative rods. (3) Hypertensive urgency ICD Code: I16.0 - Hypertensive urgency Plan: Pressure on admission was 246/114. Patient's blood pressure is still severely elevated with systolic blood pressure in the 190s. However patient does not wish to stay in the hospital for further management of his blood pressure. Patient decided to leave AGAINST MEDICAL ADVICE. (4) Headache ICD Code: R51 - Headache Status: Acute Plan: Rx'd tylenol John Robledo MD Jul 06, 2017 16:07
--- NOTE | 2017-07-06 16:18 | HHI.DS ---
Discharge Summary Admission Date Jul 05, 2017 at 17:59 Discharge Date: Jul 06, 2017 Admitting Diagnosis left breast mass with cellulitis, abscess?, hypertension (1) Breast mass, left ICD Code: N63.20 - Unspecified lump in the left breast, unspecified quadrant Status: Acute (2) Cellulitis of left breast ICD Code: N61.0 - Mastitis without abscess Status: Acute (3) Hypertensive urgency ICD Code: I16.0 - Hypertensive urgency (4) Headache ICD Code: R51 - Headache Status: Acute Procedures none Brief History - From Admission Mrs. Dasilva is a 57-year-old female. She is at the hospital today for evaluation of the left breast mass. Left breast mass has been present for 15 years. She says as an outpatient she has had imaging performed which has been suggestive of tumor in the past. She reports that obtaining the correct image orders (says numerous times the imaging account manager needed a different order than screening mammogram in order to perform testing) and lack of insurance have been barriers to her fully pursuing this breast mass earlier. She feels that the slowly progressive nature of this breast mass makes it more likely benign. However, recently the breast mass has ulcerated and has been producing milky/ purulent discharge. The mass has become more vascular and large. She also has developed a palpable axillary mass at the time of the recent progression mentioned. Imaging is suspicious for malignancy with associated lymphadenopathy. Focal area of Necrosis versus abscess on imaging, within the tumor. No other complaints. She denies any fever. No chills. No night sweats. Tachycardia, increased neutrophil ratio and suspected source of infection qualified as patient for sepsis. CBC/BMP: 07/06/17 0645 07/06/17 0645 Significant Findings Laboratory Tests Test 07/05/17 14:14 07/05/17 14:15 07/05/17 15:55 07/06/17 06:45 Estimat Glomerular Filtration Rate 83 ML/MIN (>89) Troponin I LESS THAN 0.02 NG/ML Mean Corpuscular Hemoglobin 26.9 PG (27.0-34.0) Neutrophils (%) (Auto) 70.6 % (16.0-70.0) 73.2 % (16.0-70.0) Mean Corpuscular Volume 79.8 FL (80.0-100.0) Random Glucose 121 MG/DL (74-106) Alanine Aminotransferase (ALT/SGPT) 54 U/L (10-53) Imaging Last Impressions Chest CT 07/05/17 0000 Signed Impressions: Service Date/Time: Wednesday, July 05, 2017 16:39 - CONCLUSION: 1. Very large left-sided breast mass with associated skin thickening and left axillary adenopathy. Patient has been previously evaluated for this mass, most recently in September of 2015, with ultrasound report of BI-RADS 5 and reported surgical consultation. 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 2. Focal hypodense region along the lateral posterior aspect of the mass measures 2.9 x 3.5 cm. This likely reflects tumoral necrosis. Small abscess cannot be excluded given history of purulent discharge from the region of the mass. 3. No evidence for additional foci of metastatic disease. 4. Hepatic steatosis. Ayan Abel MD Breast Ultrasound 07/05/17 0000 Signed Impressions: Service Date/Time: Wednesday, July 05, 2017 15:59 - CONCLUSION: 1. Enlarging very large hypoechoic irregular lobulated mass occupying nearly the entire lateral aspect of the left breast. This mass has reportedly been present for many years and has been previously worked up. BI-RADS category 5 based on prior ultrasound examination from [facility] dated 10/06/2015. Clinical correlation is recommended. 2. No sonographic evidence for focal drainable fluid collection within the mass. Ayan Abel MD PE at Discharge AAOx3 nad Large ulcerated mass of left breast Clear lungs BL S1S2 RRR, no MRG Abdomen is obese, soft, NT, ND Pt Condition on Discharge: Stable Discharge Time: <= 30 minutes Discharge Instructions DIET: Follow Instructions for: Heart Healthy Diet Activities to Avoid: Weight Bearing, Strenuous Activity Follow up Referrals: Oncology - 1 Week with Jam Curran MD PCP Follow-up - 2 Days Surgical - 10 Days with Tony Benson MD New Medications: Levofloxacin (Levaquin) 750 Mg Tablet 750 MG PO DAILY for Infection, #10 TAB 0 Refills Continued Medications: Calcium Polycarbophil (Fiber) 625 Mg Tab 625 MG PO PRN for CONSTIPATION, TAB 0 Refills Lisinopril (Lisinopril) 20 Mg Tab 20 MG PO DAILY, #30 TAB 0 Refills Meclizine (Meclizine) 25 Mg Tab 25 MG PO DIRECTED PRN for VERTIGO, TAB 0 Refills John Robledo MD Jul 06, 2017 16:18
== END 2017-07-06 16:37 | disposition left against medical advice (07) | DRG 872 ==
LOC: NEPE 12:53 → NEDA 17:34 → OBSVTOIN 17:59 → N04B 22:10
PROVIDERS: ADMIT Hospitalist; ATTEND Hospitalist
DX: A41.9 Sepsis, unspecified organism (principal); Z68.41 Body mass index [BMI] 40.0-44.9, adult; I10 Essential (primary) hypertension; N61.0 Mastitis without abscess; F41.9 Anxiety disorder, unspecified; I16.0 Hypertensive urgency; I25.10 Atherosclerotic heart disease of native coronary artery without angina pectoris; N63.20 Unspecified lump in the left breast, unspecified quadrant; R00.0 Tachycardia, unspecified; R42 Dizziness and giddiness; R51 Headache; R59.0 Localized enlarged lymph nodes; E66.9 Obesity, unspecified
CPT/HCPCS: 71260; 76642; 80048; 80053; 82550; 83605; 83735; 84484; 85025; 86140; 87040; 87070; 87077; 87186; 93005; 96365; J0360; J1650; J2405; J2543; J7030; Q9967